=== PATIENT | male | born 2000 | race Caucasian/White ===

== ENCOUNTER 2024-04-08 23:57 | Emergency (ER) | payer OTHER, SELFPAY ==
[2024-04-09] VITALS (7 sets, daily range): BP systolic 121–156; BP diastolic 74–99; BMI 23.4
[2024-04-09 01:02] LABS: Hematocrit 49.4 % (39.0-52.0); Mean Corp Hgb Conc. 34.4 g/dL (33.0-37.0); Mean Corpuscular Hgb 29.1 pg (27.0-31.0); Mean Corpuscular Volume 84.6 fL (80.0-94.0); Mean Platelet Volume 9.6 fL (7.4-10.4); Platelet Count 233 10^3/uL (130-400); Red Blood Cell Count 5.84 10^6/uL (4.70-6.10); Red Cell Dist. Width 11.8 % (11.5-14.5); White Blood Cell Count 6.1 10^3/uL (4.8-10.8)
[2024-04-09 01:06] LABS: Lactic Acid 2.3 mmol/L (0.7-2.0)
--- NOTE | 2024-04-09 01:13 | ED.GENMED ---
History of Present Illness
General
Chief Complaint: Abdominal Symptoms
Source: patient
Exam Limitations: none
Time Seen by Provider: 04/09/24 01:08
History of Present Illness
History of Present Illness:
See MDM
Past History
Past History
ED Past Medical History: None
ED Past Surgical History: None
Social History
Tobacco: Non-smoker
Alcohol: None
Phy Exam
Physical Exam
Physical Exam:
See MDM
Sepsis
Sepsis Screening
Sepsis Assessment: Sepsis Ruled Out
Sepsis Screen
Sepsis Screen: Sepsis Ruled Out
Date: 04/09/24
Time: 02:40
Course
Orders/Labs/Results
Orders:
Orders
04/09/24 00:25
Complete Blood Count/With Diff Urgent
Comprehensive Metabolic Panel Urgent
Lactic Acid Urgent
Lipase Urgent
Manual Differential Urgent
04/09/24 01:12
CT Abd/pelvis W Iv Cont Urgent
Comment:
Reason For Exam: recent travel, bloody diarrhea, general abd pain
STOOL [C difficile Antigen & Toxins] Urgent
FRED Source: Feces/Stool
Specimen Description:
Stool Culture Urgent
FRED Source: Feces/Stool
Specimen Description:
0.9% Sodium Chloride 1000 ml [Nss] 1,000 ml IV BOLUS
Ketorolac [Toradol] 30 mg IV NOW STA
Ondansetron Injectable [Zofran] 4 mg IV NOW STA
04/09/24 02:06
Acetaminophen [Tylenol] 1,000 mg PO NOW STA
04/09/24 02:35
NSS 1000mL Bolus over 1 hr 0.9% Sodium Chloride 1000 ml [Nss] 1,000 ml IV BOLUS
04/09/24 02:36
Ciprofloxacin 400 mg IVPB NOW Ciprofloxacin 400 mg/[id number] [Cipro 400 mg] 200 ml IV NOW
Abnormal Lab Results
04/09/24
00:25
Segmented Neutrophils 32 L %
(42-75)
Band Neutrophils 30 H %
(0-3)
Lymphocytes (Manual) 15 L %
(20-51)
Monocytes (Manual) 19 H %
(2-9)
Chloride 95 L mmol/L
(98-107)
Glucose 120 H mg/dl
(70-99)
Lactic Acid 2.3 H mmol/L
(0.7-2.0)
Total Protein 8.4 H g/dl
(6.3-8.2)
04/09/24 00:25
04/09/24 00:25
Vital Signs
Initial and Last Documented VS:
Initial Vital Signs
Temp Pulse Resp BP Pulse Ox
100.4 F H 107 26 156/97 100
04/09/24 00:10 04/09/24 00:10 04/09/24 00:10 04/09/24 00:10 04/09/24 00:10
Last Documented Vital Signs
Temp Pulse Resp BP Pulse Ox
100.8 F H 93 20 124/74 98
04/09/24 02:18 04/09/24 02:17 04/09/24 01:16 04/09/24 02:17 04/09/24 02:17
MDM/Problems Addressed
Differential Diagnosis Includes:
HPI and MDM Narrative:
24-year-old male presenting to the emergency department with several days of fevers, abdominal pain, vomiting and diarrhea. He just returned from [facility]. He is now noticing a bloody diarrhea. He states he is having about 50 episodes of diarrhea a
day. On exam, he is uncomfortable. Has generalized abdominal tenderness. He is clinically dehydrated. Will obtain basic blood work and provide IV fluids. Will obtain CT abdomen/pelvis. Will order stool studies
Physical exam
General: Mildly uncomfortable
HEENT: protecting airway. Dry mucous membranes
Neck: appears supple
CV: No evidence of cyanosis
Resp: No accessory muscle use
Abd: Non-distended. Generalized abdominal tenderness without rebound
Extremities: No deformities
Neuro: alert
Psych: Normal affect
Skin: Intact
Problems Addressed including Acute and Chronic Conditions affecting care:
1. Abdominal pain with bloody diarrhea
Acuity: acute
Prognosis: unstable
Details: Given how comfortably he is, will order stool studies and obtain CT.
Updates
On reassessment after IV fluids, Toradol and Tylenol, patient states he is feeling so much better. At this point, CT report came back as pancolitis. Will treat with ciprofloxacin given his penicillin allergy. Patient states he feels comfortable
going home. Will refer to GI
His lactic acid is mildly elevated. I believe this is likely related to hypovolemia and dehydration rather than sepsis.
Differential Diagnosis (but not limited to): Traveler's diarrhea, infectious diarrhea, colitis
Testing considered: Blood culture
Drug therapy (if applicable): OTC meds, please see d/c instruction regarding Rx drugs
Amount and/or Complexity of Data Reviewed
Clinical info obtained from: Patient
External data reviewed: N/A
Labs I independently reviewed (but not limited to): Elevated lactic acid
Radiology: The CT scan was personally and independently reviewed. In addition, official CT report reviewed.
Pulse Ox: not hypoxic
EKG independently reviewed: N/A
S[employer] Cutting [employer] Operator: N/A
Critical Care: N/A
Risk of Complication:
Social Determinants of health: Good social support
Discussed with other providers: N/A
Escalation of Care includes Admit/Obs: After being observed in the Emergency Department, pt stable for discharge.
Occasional wrong word or 'sound a like' substitutions may have occurred due to the inherent limitations of voice recognition software. Read the chart carefully and recognize, using context, where substitutions have occurred.
*Critical Care Note
Total Time (30-74mins, 75-104mins- exclusive of procedures): Not Applicable
ED Attending Note
-
Portions of this chart may have been created with voice recognition software.� Occasional wrong word or��sound alike� substitutions may have occurred due to the inherent limitations of voice recognition software.
Discharge Plan
Departure
Patient Disposition: Home (Routine Discharge)
Date of Disposition: 04/09/24
Time of Disposition: 02:38
Patient with high blood pressure during this ER visit?: No
Discharge Problem:
Pancolitis
Instructions: Colitis
Prescriptions:
New
ciprofloxacin HCl 500 mg Tablet
500 mg PO BID Qty: 14 0RF
ondansetron 4 mg Tablet,Disintegrating
4 mg PO BIDPRN PRN (Reason: nausea/vomiting) Qty: 10 0RF
Referrals:
Sarai Suazo MD [Active] -
NONE,* [Family Provider] -
Activity Restrictions/Additional Instructions:
Please return for any worsening symptoms.
You may return at any time if you have further concerns.
Please follow up with your doctor at the first available appointment, preferably this week.
Please make an appointment to see the ampoule filler and sealer.
Thank you for choosing [facility].
Interventions
Interventions:
*Risk Screen - Suicide Last Done: 04/09/24 00:10
*General Assessment Last Done: 04/09/24 01:20
*Neglect/Abuse Screening Last Done: 04/09/24 01:20
*ED COVID-19 Vaccine History Last Done: 04/09/24 01:19
[id number] Assessment Last Done: 04/09/24 01:17
Discharge Date and Time
Print Language: LIBERIAN
[2024-04-09 01:31] LABS: ALT (SGPT) 32 U/L (0-50); AST (SGOT) 27 U/L (17-59); Albumin 4.8 g/dl (3.5-5.0); Alkaline Phosphatase 103 U/L (38-126); Blood Urea Nitrogen 13 mg/dl (9-20); Calcium 9.6 mg/dl (8.4-10.2); Carbon Dioxide 24 mmol/L (22-30); Chloride 95 mmol/L (98-107); Estimated Creatinine Clearance 93 ml/min; Glucose 120 mg/dl (70-99); Lipase 45 U/L (23-300); Sodium 135 mmol/L (135-145); Total Bilirubin 0.8 mg/dl (0.2-1.3); Total Protein 8.4 g/dl (6.3-8.2); eGFR > 60.00
[2024-04-09] MEDS: NSS 1000 IV ×2 (01:31→03:00)
[2024-04-09] MEDS: TORADOL 30 MG IV (01:32)
[2024-04-09 01:35] LABS: Potassium 4.1 mmol/L (3.5-5.1)
[2024-04-09] MEDS: ZOFRAN 4 MG IV (01:36)
[2024-04-09] MEDS: TYLENOL 1000 MG PO (02:23)
[2024-04-09 02:24] LABS: Absolute Neutrophils -Man Diff 3.7 10^3/uL (1.4-6.5); Atypical Lymphocytes 4 %; Band Neutrophils 30 % (0-3); Lymphocytes 15 % (20-51); Monocytes 19 % (2-9); Normal RBC Morphology Yes; Platelets Checked Yes; Segmented Neutrophils 32 % (42-75); Total Cells Counted 100
[2024-04-09 03:43] LABS: Lactic Acid 0.8 mmol/L (0.7-2.0)
[2024-04-09] MEDS: CIPRO 400 MG 200 IV (03:45)
== END 2024-04-09 04:52 | disposition home or self-care (01) ==
LOC: EMR 23:57
PROVIDERS: Emergency Medicine; EMERGENCY PHYSICIAN Student in an Organized Health Care Education/Training Program
DX: K52.9 Noninfective gastroenteritis and colitis, unspecified (principal)
CPT/HCPCS: 99284; 96374; 96375; 96361; 74177; 80053; 83605; 83690; 85025; 87045; 87046; 87324; 87427; 87449; Q9967

== ENCOUNTER → 2024-04-17 16:29 | Outpatient (REF) | payer OTHER, SELFPAY ==
[2024-04-17 16:51] LABS: % Basophils 0.8 % (0-2); % Eosinophils 1.6 % (0-6); % Immature Granulocytes 2.7 % (0-0.5); % Lymphocytes 25.4 % (20.5-51.1); % Monocytes 7.6 % (1.7-9.3); % Neutrophils 61.9 % (42.2-75.2); Absolute Basophils 0.1 10^3/uL (0-0.2); Absolute Eosinophils 0.2 10^3/uL (0-0.7); Absolute Immature Granulocytes 0.3 10^3/uL (0-0.05); Absolute Lymphocytes 2.5 10^3/uL (1.2-3.4); Absolute Monocytes 0.7 10^3/uL (0.1-0.6); Hematocrit 41.3 % (39.0-52.0); Hemoglobin 13.7 g/dL (13.0-18.0); Mean Corp Hgb Conc. 33.2 g/dL (33.0-37.0); Mean Corpuscular Hgb 28.7 pg (27.0-31.0); Mean Corpuscular Volume 86.6 fL (80.0-94.0); Mean Platelet Volume 8.5 fL (7.4-10.4); Nucleated Red Blood Cells % 0 % (-); Platelet Count 399 10^3/uL (130-400); Red Blood Cell Count 4.77 10^6/uL (4.70-6.10); White Blood Cell Count 9.7 10^3/uL (4.8-10.8)
[2024-04-17 17:09] LABS: ALT (SGPT) 48 U/L (0-50); AST (SGOT) 27 U/L (17-59); Alkaline Phosphatase 76 U/L (38-126); Amphetamines Negative (Negative); Barbiturates Negative (Negative); Benzodiazepines Negative (Negative); Blood Urea Nitrogen 18 mg/dl (9-20); Buprenorphine Negative (Negative); Calcium 9.2 mg/dl (8.4-10.2); Carbon Dioxide 27 mmol/L (22-30); Chloride 103 mmol/L (98-107); Cocaine Negative (Negative); Glucose 74 mg/dl (70-99); HDL Cholesterol 41 mg/dl; LDL Cholesterol, Calculated 85 mg/dl; Marijuana Negative (Negative); Methadone Negative (Negative); Methamphetamines Negative (Negative); Opiates Negative (Negative); Phencyclidine Negative (Negative); Potassium 4.7 mmol/L (3.5-5.1); Sodium 138 mmol/L (135-145); Total Bilirubin 0.5 mg/dl (0.2-1.3); Total Cholesterol 147 mg/dl (50-199); Total Protein 6.8 g/dl (6.3-8.2); Tricyclic Antidepressants Negative (Negative); Triglyceride 109 mg/dl (10-149); Very Low Density Lipoprotein 21 mg/dl (0-30); eGFR > 60.00
[2024-04-17 17:39] LABS: TSH Reflex To Free T4 0.89 uIU/ml (0.47-4.68)
== END ==
LOC: REG 16:29
PROVIDERS: ATTENDING PHYSICIAN Nurse Practitioner Adult Health
DX: Z76.89 Persons encountering health services in other specified circumstances (principal); Z00.00 Encounter for general adult medical examination without abnormal findings; Z13.29 Encounter for screening for other suspected endocrine disorder; Z13.220 Encounter for screening for lipoid disorders
CPT/HCPCS: 36415; 80053; 80061; 80306; 84443; 85025